=== PATIENT | female | born 1965 | race Caucasian/White ===

== ENCOUNTER → 2022-06-27 | Outpatient (CLI) | payer BC ==
[2022-06-27 11:13] LABS: BASO # 0.1 10*3/uL (0.0-0.1); BASO % 0.8 % (0.0-1.0); EOS # 0.1 10*3/uL (0.0-0.4); EOS % 1.4 % (1.0-4.0); HEMATOCRIT 42.1 % (37.0-47.0); LYMPH % 13.7 % (27.0-41.0); MEAN CELL VOLUME 86.4 fl (81.0-99.0); MEAN CORPUSCULAR HGB 27.7 pg (27.0-31.0); MEAN CORPUSCULAR HGB CONC 32.1 g/dl (33.0-37.0); MEAN PLATELET VOLUME 9.5 fl (9.6-12.3); MONO # 0.7 10*3/uL (0.1-1.0); NEUT # 5.4 10*3/uL (2.3-7.9); NEUT % 74.8 % (47.0-73.0); PLATELET COUNT AUTOMATED 382 10*3/uL (130-400); RED BLOOD COUNT 4.87 10*6/uL (4.10-5.10); RED CELL DISTRI WIDTH 12.1 % (0-14.5); WHITE BLOOD COUNT 7.2 10*3/uL (4.8-10.8)
== END | disposition home or self-care (01) ==
LOC: LAB 08:48 → WOUNDCARE 08:48
PROVIDERS: ATTEND Nurse Practitioner Family
DX: T81.89XA Other complications of procedures, not elsewhere classified, initial encounter (principal); S21.101A Unspecified open wound of right front wall of thorax without penetration into thoracic cavity, initial encounter; L59.9 Disorder of the skin and subcutaneous tissue related to radiation, unspecified; Z01.818 Encounter for other preprocedural examination; Z85.3 Personal history of malignant neoplasm of breast; Z92.3 Personal history of irradiation; Z71.89 Other specified counseling; Z90.710 Acquired absence of both cervix and uterus; Y84.2 Radiological procedure and radiotherapy as the cause of abnormal reaction of the patient, or of later complication, without mention of misadventure at the time of the procedure; X58.XXXA Exposure to other specified factors, initial encounter; Y93.89 Activity, other specified; Y92.89 Other specified places as the place of occurrence of the external cause; Y99.8 Other external cause status; Y92.238 Other place in hospital as the place of occurrence of the external cause; Y83.8 Other surgical procedures as the cause of abnormal reaction of the patient, or of later complication, without mention of misadventure at the time of the procedure

== ENCOUNTER → 2022-06-29 | Outpatient (CLI) | payer BC | END | disposition home or self-care (01) | LOC: RESCLI 14:04 | PROVIDERS: ATTEND Internal Medicine | DX: I10 Essential (primary) hypertension (principal); I26.92 Saddle embolus of pulmonary artery without acute cor pulmonale; D84.9 Immunodeficiency, unspecified; J32.9 Chronic sinusitis, unspecified; K21.9 Gastro-esophageal reflux disease without esophagitis; E78.5 Hyperlipidemia, unspecified; G47.00 Insomnia, unspecified; E55.9 Vitamin D deficiency, unspecified; Z00.00 Encounter for general adult medical examination without abnormal findings; Z82.49 Family history of ischemic heart disease and other diseases of the circulatory system; Z88.8 Allergy status to other drugs, medicaments and biological substances; Z79.899 Other long term (current) drug therapy ==

== ENCOUNTER → 2022-07-02 | Outpatient (CLI) | payer BC | END | disposition home or self-care (01) | LOC: WOUNDCARE | PROVIDERS: ATTEND Internal Medicine | DX: L59.8 Other specified disorders of the skin and subcutaneous tissue related to radiation (principal); S21.101D Unspecified open wound of right front wall of thorax without penetration into thoracic cavity, subsequent encounter; Z71.89 Other specified counseling; Z92.3 Personal history of irradiation; Z85.3 Personal history of malignant neoplasm of breast; Z01.818 Encounter for other preprocedural examination; Z90.710 Acquired absence of both cervix and uterus; X58.XXXD Exposure to other specified factors, subsequent encounter; Y84.2 Radiological procedure and radiotherapy as the cause of abnormal reaction of the patient, or of later complication, without mention of misadventure at the time of the procedure ==

== ENCOUNTER → 2022-07-03 | Outpatient (CLI) | payer BC | END | disposition home or self-care (01) | LOC: WOUNDCARE | PROVIDERS: ATTEND Student in an Organized Health Care Education/Training Program | DX: L59.8 Other specified disorders of the skin and subcutaneous tissue related to radiation (principal); S21.101D Unspecified open wound of right front wall of thorax without penetration into thoracic cavity, subsequent encounter; Z01.818 Encounter for other preprocedural examination; Z85.3 Personal history of malignant neoplasm of breast; Z92.3 Personal history of irradiation; Z71.89 Other specified counseling; Z90.710 Acquired absence of both cervix and uterus; X58.XXXD Exposure to other specified factors, subsequent encounter; Y84.2 Radiological procedure and radiotherapy as the cause of abnormal reaction of the patient, or of later complication, without mention of misadventure at the time of the procedure ==

== ENCOUNTER → 2022-07-04 | Outpatient (CLI) | payer BC | END | disposition home or self-care (01) | LOC: WOUNDCARE | PROVIDERS: ATTEND Nurse Practitioner Family | DX: L59.8 Other specified disorders of the skin and subcutaneous tissue related to radiation (principal); T81.89XD Other complications of procedures, not elsewhere classified, subsequent encounter; S21.101D Unspecified open wound of right front wall of thorax without penetration into thoracic cavity, subsequent encounter; L98.492 Non-pressure chronic ulcer of skin of other sites with fat layer exposed; Z01.818 Encounter for other preprocedural examination; Z85.3 Personal history of malignant neoplasm of breast; Z92.3 Personal history of irradiation; Z71.89 Other specified counseling; Z90.710 Acquired absence of both cervix and uterus; X58.XXXD Exposure to other specified factors, subsequent encounter; Y83.8 Other surgical procedures as the cause of abnormal reaction of the patient, or of later complication, without mention of misadventure at the time of the procedure; Y84.2 Radiological procedure and radiotherapy as the cause of abnormal reaction of the patient, or of later complication, without mention of misadventure at the time of the procedure ==

== ENCOUNTER → 2022-07-09 | Outpatient (CLI) | payer BC | END | disposition home or self-care (01) | LOC: WOUNDCARE 00:51 | PROVIDERS: ATTEND Student in an Organized Health Care Education/Training Program | DX: L59.8 Other specified disorders of the skin and subcutaneous tissue related to radiation (principal); S21.101D Unspecified open wound of right front wall of thorax without penetration into thoracic cavity, subsequent encounter; Z01.818 Encounter for other preprocedural examination; Z85.3 Personal history of malignant neoplasm of breast; Z92.3 Personal history of irradiation; Z71.89 Other specified counseling; Z90.710 Acquired absence of both cervix and uterus; X58.XXXD Exposure to other specified factors, subsequent encounter; Y84.2 Radiological procedure and radiotherapy as the cause of abnormal reaction of the patient, or of later complication, without mention of misadventure at the time of the procedure ==

== ENCOUNTER → 2022-07-11 | Outpatient (CLI) | payer BC | LOC: WOUNDCARE 01:29 | PROVIDERS: ATTEND Nurse Practitioner Family | DX: L59.8 Other specified disorders of the skin and subcutaneous tissue related to radiation (principal); S21.101D Unspecified open wound of right front wall of thorax without penetration into thoracic cavity, subsequent encounter; Z71.89 Other specified counseling; Z92.3 Personal history of irradiation; Z85.3 Personal history of malignant neoplasm of breast; Z01.818 Encounter for other preprocedural examination; Z90.710 Acquired absence of both cervix and uterus; X58.XXXD Exposure to other specified factors, subsequent encounter; Y84.2 Radiological procedure and radiotherapy as the cause of abnormal reaction of the patient, or of later complication, without mention of misadventure at the time of the procedure ==

== ENCOUNTER → 2022-07-13 | Outpatient (CLI) | payer BC | END | disposition home or self-care (01) | LOC: WOUNDCARE 01:35 | PROVIDERS: ATTEND Nurse Practitioner Family | DX: L59.8 Other specified disorders of the skin and subcutaneous tissue related to radiation (principal); S21.101D Unspecified open wound of right front wall of thorax without penetration into thoracic cavity, subsequent encounter; Z92.3 Personal history of irradiation; Z85.3 Personal history of malignant neoplasm of breast; Z01.818 Encounter for other preprocedural examination; Z71.89 Other specified counseling; Z90.710 Acquired absence of both cervix and uterus; X58.XXXD Exposure to other specified factors, subsequent encounter; Y84.2 Radiological procedure and radiotherapy as the cause of abnormal reaction of the patient, or of later complication, without mention of misadventure at the time of the procedure ==

== ENCOUNTER → 2022-07-17 | Outpatient (CLI) | payer BC | END | disposition home or self-care (01) | LOC: WOUNDCARE 03:33 | PROVIDERS: ATTEND Nurse Practitioner Family | DX: L59.8 Other specified disorders of the skin and subcutaneous tissue related to radiation (principal); T81.89XD Other complications of procedures, not elsewhere classified, subsequent encounter; S21.101D Unspecified open wound of right front wall of thorax without penetration into thoracic cavity, subsequent encounter; L98.492 Non-pressure chronic ulcer of skin of other sites with fat layer exposed; Z01.818 Encounter for other preprocedural examination; Z85.3 Personal history of malignant neoplasm of breast; Z92.3 Personal history of irradiation; Z71.89 Other specified counseling; X58.XXXD Exposure to other specified factors, subsequent encounter; Y83.8 Other surgical procedures as the cause of abnormal reaction of the patient, or of later complication, without mention of misadventure at the time of the procedure; Y84.2 Radiological procedure and radiotherapy as the cause of abnormal reaction of the patient, or of later complication, without mention of misadventure at the time of the procedure ==

== ENCOUNTER → 2022-07-18 | Outpatient (CLI) | payer BC | END | disposition home or self-care (01) | LOC: WOUNDCARE 01:10 | PROVIDERS: ATTEND Nurse Practitioner Family | DX: L59.8 Other specified disorders of the skin and subcutaneous tissue related to radiation (principal); S21.101D Unspecified open wound of right front wall of thorax without penetration into thoracic cavity, subsequent encounter; T81.89XD Other complications of procedures, not elsewhere classified, subsequent encounter; Z01.818 Encounter for other preprocedural examination; Z85.3 Personal history of malignant neoplasm of breast; Z92.3 Personal history of irradiation; Z71.89 Other specified counseling; Z90.710 Acquired absence of both cervix and uterus; X58.XXXD Exposure to other specified factors, subsequent encounter; Y83.8 Other surgical procedures as the cause of abnormal reaction of the patient, or of later complication, without mention of misadventure at the time of the procedure; Y84.2 Radiological procedure and radiotherapy as the cause of abnormal reaction of the patient, or of later complication, without mention of misadventure at the time of the procedure ==

== ENCOUNTER → 2022-07-23 | Outpatient (CLI) | payer BC | END | disposition home or self-care (01) | LOC: WOUNDCARE 02:07 | PROVIDERS: ATTEND Internal Medicine | DX: L59.8 Other specified disorders of the skin and subcutaneous tissue related to radiation (principal); S21.101D Unspecified open wound of right front wall of thorax without penetration into thoracic cavity, subsequent encounter; Z85.3 Personal history of malignant neoplasm of breast; Z01.818 Encounter for other preprocedural examination; Z92.3 Personal history of irradiation; Z71.89 Other specified counseling; Z90.710 Acquired absence of both cervix and uterus; X58.XXXD Exposure to other specified factors, subsequent encounter; Y84.2 Radiological procedure and radiotherapy as the cause of abnormal reaction of the patient, or of later complication, without mention of misadventure at the time of the procedure ==

== ENCOUNTER → 2022-07-24 | Outpatient (CLI) | payer BC | END | disposition home or self-care (01) | LOC: WOUNDCARE 02:54 | PROVIDERS: ATTEND Internal Medicine | DX: L59.8 Other specified disorders of the skin and subcutaneous tissue related to radiation (principal); T81.89XD Other complications of procedures, not elsewhere classified, subsequent encounter; L98.492 Non-pressure chronic ulcer of skin of other sites with fat layer exposed; S21.101D Unspecified open wound of right front wall of thorax without penetration into thoracic cavity, subsequent encounter; Z71.89 Other specified counseling; Z01.818 Encounter for other preprocedural examination; Z85.3 Personal history of malignant neoplasm of breast; Z92.3 Personal history of irradiation; Z90.710 Acquired absence of both cervix and uterus; X58.XXXD Exposure to other specified factors, subsequent encounter; Y83.8 Other surgical procedures as the cause of abnormal reaction of the patient, or of later complication, without mention of misadventure at the time of the procedure; Y84.2 Radiological procedure and radiotherapy as the cause of abnormal reaction of the patient, or of later complication, without mention of misadventure at the time of the procedure ==

== ENCOUNTER → 2022-07-26 | Outpatient (CLI) | payer BC | END | disposition home or self-care (01) | LOC: WOUNDCARE 04:54 | PROVIDERS: ATTEND Nurse Practitioner Family | DX: L59.8 Other specified disorders of the skin and subcutaneous tissue related to radiation (principal); S21.101D Unspecified open wound of right front wall of thorax without penetration into thoracic cavity, subsequent encounter; L98.492 Non-pressure chronic ulcer of skin of other sites with fat layer exposed; Z01.818 Encounter for other preprocedural examination; Z85.3 Personal history of malignant neoplasm of breast; Z92.3 Personal history of irradiation; Z71.89 Other specified counseling; Z90.710 Acquired absence of both cervix and uterus; X58.XXXD Exposure to other specified factors, subsequent encounter; Y84.2 Radiological procedure and radiotherapy as the cause of abnormal reaction of the patient, or of later complication, without mention of misadventure at the time of the procedure ==

== ENCOUNTER → 2022-07-27 | Outpatient (CLI) | payer BC | LOC: CANPRECLI → WOUNDCARE 09:49 | PROVIDERS: ATTEND Nurse Practitioner Family | DX: L59.8 Other specified disorders of the skin and subcutaneous tissue related to radiation (principal); L98.492 Non-pressure chronic ulcer of skin of other sites with fat layer exposed; S21.101D Unspecified open wound of right front wall of thorax without penetration into thoracic cavity, subsequent encounter; T70.0XXD Otitic barotrauma, subsequent encounter; Z01.818 Encounter for other preprocedural examination; Z85.3 Personal history of malignant neoplasm of breast; Z92.3 Personal history of irradiation; Z71.89 Other specified counseling; Z90.710 Acquired absence of both cervix and uterus; X58.XXXD Exposure to other specified factors, subsequent encounter; Y84.2 Radiological procedure and radiotherapy as the cause of abnormal reaction of the patient, or of later complication, without mention of misadventure at the time of the procedure ==

== ENCOUNTER → 2022-07-30 | Outpatient (CLI) | payer BC | END | disposition home or self-care (01) | LOC: WOUNDCARE 04:01 | PROVIDERS: ATTEND Nurse Practitioner Family | DX: L59.8 Other specified disorders of the skin and subcutaneous tissue related to radiation (principal); L98.492 Non-pressure chronic ulcer of skin of other sites with fat layer exposed; S21.101D Unspecified open wound of right front wall of thorax without penetration into thoracic cavity, subsequent encounter; T70.0XXD Otitic barotrauma, subsequent encounter; Z85.3 Personal history of malignant neoplasm of breast; Z92.3 Personal history of irradiation; Z01.818 Encounter for other preprocedural examination; Z90.710 Acquired absence of both cervix and uterus; Z71.89 Other specified counseling; X58.XXXD Exposure to other specified factors, subsequent encounter; Y84.2 Radiological procedure and radiotherapy as the cause of abnormal reaction of the patient, or of later complication, without mention of misadventure at the time of the procedure ==

== ENCOUNTER → 2022-07-31 | Outpatient (CLI) | payer BC | END | disposition home or self-care (01) | LOC: WOUNDCARE 03:07 | PROVIDERS: ATTEND Student in an Organized Health Care Education/Training Program | DX: L59.8 Other specified disorders of the skin and subcutaneous tissue related to radiation (principal); T81.89XD Other complications of procedures, not elsewhere classified, subsequent encounter; S21.101D Unspecified open wound of right front wall of thorax without penetration into thoracic cavity, subsequent encounter; L98.492 Non-pressure chronic ulcer of skin of other sites with fat layer exposed; Z01.818 Encounter for other preprocedural examination; Z85.3 Personal history of malignant neoplasm of breast; Z92.3 Personal history of irradiation; Z71.89 Other specified counseling; Z90.710 Acquired absence of both cervix and uterus; X58.XXXD Exposure to other specified factors, subsequent encounter; Y83.8 Other surgical procedures as the cause of abnormal reaction of the patient, or of later complication, without mention of misadventure at the time of the procedure; Y84.2 Radiological procedure and radiotherapy as the cause of abnormal reaction of the patient, or of later complication, without mention of misadventure at the time of the procedure ==

== ENCOUNTER → 2022-08-01 | Outpatient (CLI) | payer BC | END | disposition home or self-care (01) | LOC: WOUNDCARE 02:47 | PROVIDERS: ATTEND Nurse Practitioner Family | DX: L59.8 Other specified disorders of the skin and subcutaneous tissue related to radiation (principal); S21.101D Unspecified open wound of right front wall of thorax without penetration into thoracic cavity, subsequent encounter; T70.0XXD Otitic barotrauma, subsequent encounter; L98.492 Non-pressure chronic ulcer of skin of other sites with fat layer exposed; Z85.3 Personal history of malignant neoplasm of breast; Z01.818 Encounter for other preprocedural examination; Z92.3 Personal history of irradiation; Z71.89 Other specified counseling; Z90.710 Acquired absence of both cervix and uterus; X58.XXXD Exposure to other specified factors, subsequent encounter; Y84.2 Radiological procedure and radiotherapy as the cause of abnormal reaction of the patient, or of later complication, without mention of misadventure at the time of the procedure ==

== ENCOUNTER → 2022-08-02 | Outpatient (CLI) | payer BC | END | disposition home or self-care (01) | LOC: WOUNDCARE 01:24 | PROVIDERS: ATTEND Nurse Practitioner Family | DX: L59.8 Other specified disorders of the skin and subcutaneous tissue related to radiation (principal); T81.89XD Other complications of procedures, not elsewhere classified, subsequent encounter; S21.101D Unspecified open wound of right front wall of thorax without penetration into thoracic cavity, subsequent encounter; T70.0XXD Otitic barotrauma, subsequent encounter; L98.492 Non-pressure chronic ulcer of skin of other sites with fat layer exposed; Z01.818 Encounter for other preprocedural examination; Z85.3 Personal history of malignant neoplasm of breast; Z92.3 Personal history of irradiation; Z71.89 Other specified counseling; Z90.710 Acquired absence of both cervix and uterus; X58.XXXD Exposure to other specified factors, subsequent encounter; Y83.8 Other surgical procedures as the cause of abnormal reaction of the patient, or of later complication, without mention of misadventure at the time of the procedure ==

== ENCOUNTER → 2022-08-07 | Outpatient (CLI) | payer BC | END | disposition home or self-care (01) | LOC: WOUNDCARE 04:20 | PROVIDERS: ATTEND Student in an Organized Health Care Education/Training Program | DX: L59.8 Other specified disorders of the skin and subcutaneous tissue related to radiation (principal); L98.492 Non-pressure chronic ulcer of skin of other sites with fat layer exposed; T70.0XXD Otitic barotrauma, subsequent encounter; S21.101D Unspecified open wound of right front wall of thorax without penetration into thoracic cavity, subsequent encounter; Z85.3 Personal history of malignant neoplasm of breast; Z92.3 Personal history of irradiation; Z01.818 Encounter for other preprocedural examination; Z71.89 Other specified counseling; Z90.710 Acquired absence of both cervix and uterus; X58.XXXD Exposure to other specified factors, subsequent encounter; Y84.2 Radiological procedure and radiotherapy as the cause of abnormal reaction of the patient, or of later complication, without mention of misadventure at the time of the procedure ==

== ENCOUNTER → 2022-08-08 | Outpatient (CLI) | payer BC | END | disposition home or self-care (01) | LOC: WOUNDCARE 03:46 | PROVIDERS: ATTEND Nurse Practitioner Family | DX: L59.8 Other specified disorders of the skin and subcutaneous tissue related to radiation (principal); T81.89XD Other complications of procedures, not elsewhere classified, subsequent encounter; L98.492 Non-pressure chronic ulcer of skin of other sites with fat layer exposed; S21.101D Unspecified open wound of right front wall of thorax without penetration into thoracic cavity, subsequent encounter; T70.0XXD Otitic barotrauma, subsequent encounter; Z01.818 Encounter for other preprocedural examination; Z85.3 Personal history of malignant neoplasm of breast; Z92.3 Personal history of irradiation; Z71.89 Other specified counseling; Z90.710 Acquired absence of both cervix and uterus; Y83.8 Other surgical procedures as the cause of abnormal reaction of the patient, or of later complication, without mention of misadventure at the time of the procedure ==

== ENCOUNTER → 2022-08-09 | Outpatient (CLI) | payer BC | END | disposition home or self-care (01) | LOC: WOUNDCARE 00:35 | PROVIDERS: ATTEND Nurse Practitioner Family | DX: L59.8 Other specified disorders of the skin and subcutaneous tissue related to radiation (principal); S21.101D Unspecified open wound of right front wall of thorax without penetration into thoracic cavity, subsequent encounter; L98.492 Non-pressure chronic ulcer of skin of other sites with fat layer exposed; T70.0XXD Otitic barotrauma, subsequent encounter; Z01.818 Encounter for other preprocedural examination; Z85.3 Personal history of malignant neoplasm of breast; Z92.3 Personal history of irradiation; Z71.89 Other specified counseling; Z90.710 Acquired absence of both cervix and uterus; X58.XXXD Exposure to other specified factors, subsequent encounter; Y84.2 Radiological procedure and radiotherapy as the cause of abnormal reaction of the patient, or of later complication, without mention of misadventure at the time of the procedure ==

== ENCOUNTER → 2022-08-10 | Outpatient (CLI) | payer BC | LOC: WOUNDCARE 03:46 | PROVIDERS: ATTEND Student in an Organized Health Care Education/Training Program | DX: L59.8 Other specified disorders of the skin and subcutaneous tissue related to radiation (principal); T81.89XD Other complications of procedures, not elsewhere classified, subsequent encounter; L98.492 Non-pressure chronic ulcer of skin of other sites with fat layer exposed; S21.101D Unspecified open wound of right front wall of thorax without penetration into thoracic cavity, subsequent encounter; T70.0XXD Otitic barotrauma, subsequent encounter; Z01.818 Encounter for other preprocedural examination; Z85.3 Personal history of malignant neoplasm of breast; Z92.3 Personal history of irradiation; Z71.89 Other specified counseling; Z90.710 Acquired absence of both cervix and uterus; X58.XXXD Exposure to other specified factors, subsequent encounter; Y83.8 Other surgical procedures as the cause of abnormal reaction of the patient, or of later complication, without mention of misadventure at the time of the procedure; Y84.2 Radiological procedure and radiotherapy as the cause of abnormal reaction of the patient, or of later complication, without mention of misadventure at the time of the procedure ==

== ENCOUNTER → 2022-08-14 | Outpatient (CLI) | payer BC | END | disposition home or self-care (01) | LOC: WOUNDCARE 01:34 | PROVIDERS: ATTEND Nurse Practitioner Family | DX: L59.8 Other specified disorders of the skin and subcutaneous tissue related to radiation (principal); T81.89XD Other complications of procedures, not elsewhere classified, subsequent encounter; S21.101D Unspecified open wound of right front wall of thorax without penetration into thoracic cavity, subsequent encounter; T70.0XXD Otitic barotrauma, subsequent encounter; L98.492 Non-pressure chronic ulcer of skin of other sites with fat layer exposed; Z01.818 Encounter for other preprocedural examination; Z85.3 Personal history of malignant neoplasm of breast; Z92.3 Personal history of irradiation; Z90.710 Acquired absence of both cervix and uterus; X58.XXXD Exposure to other specified factors, subsequent encounter; Y83.8 Other surgical procedures as the cause of abnormal reaction of the patient, or of later complication, without mention of misadventure at the time of the procedure; Y84.2 Radiological procedure and radiotherapy as the cause of abnormal reaction of the patient, or of later complication, without mention of misadventure at the time of the procedure ==

== ENCOUNTER → 2022-08-15 | Outpatient (CLI) | payer BC | END | disposition home or self-care (01) | LOC: WOUNDCARE 04:42 | PROVIDERS: ATTEND Nurse Practitioner Family | DX: L59.8 Other specified disorders of the skin and subcutaneous tissue related to radiation (principal); L98.492 Non-pressure chronic ulcer of skin of other sites with fat layer exposed; S21.101D Unspecified open wound of right front wall of thorax without penetration into thoracic cavity, subsequent encounter; T70.0XXD Otitic barotrauma, subsequent encounter; Z01.818 Encounter for other preprocedural examination; Z85.3 Personal history of malignant neoplasm of breast; Z92.3 Personal history of irradiation; Z71.89 Other specified counseling; Z90.710 Acquired absence of both cervix and uterus; X58.XXXD Exposure to other specified factors, subsequent encounter; Y84.2 Radiological procedure and radiotherapy as the cause of abnormal reaction of the patient, or of later complication, without mention of misadventure at the time of the procedure ==

== ENCOUNTER → 2022-08-16 | Outpatient (CLI) | payer BC | END | disposition home or self-care (01) | LOC: WOUNDCARE 05:58 | PROVIDERS: ATTEND Nurse Practitioner Family | DX: L59.8 Other specified disorders of the skin and subcutaneous tissue related to radiation (principal); L98.492 Non-pressure chronic ulcer of skin of other sites with fat layer exposed; S21.101D Unspecified open wound of right front wall of thorax without penetration into thoracic cavity, subsequent encounter; T70.0XXD Otitic barotrauma, subsequent encounter; Z01.818 Encounter for other preprocedural examination; Z85.3 Personal history of malignant neoplasm of breast; Z92.3 Personal history of irradiation; Z71.89 Other specified counseling; Z90.710 Acquired absence of both cervix and uterus; X58.XXXD Exposure to other specified factors, subsequent encounter; Y84.2 Radiological procedure and radiotherapy as the cause of abnormal reaction of the patient, or of later complication, without mention of misadventure at the time of the procedure ==

== ENCOUNTER → 2022-08-17 | Outpatient (CLI) | payer BC | END | disposition home or self-care (01) | LOC: WOUNDCARE 02:24 | PROVIDERS: ATTEND Nurse Practitioner Family | DX: L59.8 Other specified disorders of the skin and subcutaneous tissue related to radiation (principal); M87.88 Other osteonecrosis, other site; L98.492 Non-pressure chronic ulcer of skin of other sites with fat layer exposed; S21.101D Unspecified open wound of right front wall of thorax without penetration into thoracic cavity, subsequent encounter; T70.0XXD Otitic barotrauma, subsequent encounter; Z01.818 Encounter for other preprocedural examination; Z85.3 Personal history of malignant neoplasm of breast; Z92.3 Personal history of irradiation; Z71.89 Other specified counseling; Z90.710 Acquired absence of both cervix and uterus; X58.XXXD Exposure to other specified factors, subsequent encounter; Y84.2 Radiological procedure and radiotherapy as the cause of abnormal reaction of the patient, or of later complication, without mention of misadventure at the time of the procedure ==

== ENCOUNTER → 2022-08-20 | Outpatient (CLI) | payer BC | END | disposition home or self-care (01) | LOC: WOUNDCARE 00:53 | PROVIDERS: ATTEND Internal Medicine | DX: L59.8 Other specified disorders of the skin and subcutaneous tissue related to radiation (principal); L98.492 Non-pressure chronic ulcer of skin of other sites with fat layer exposed; S21.101D Unspecified open wound of right front wall of thorax without penetration into thoracic cavity, subsequent encounter; T70.0XXD Otitic barotrauma, subsequent encounter; Z01.818 Encounter for other preprocedural examination; Z85.3 Personal history of malignant neoplasm of breast; Z92.3 Personal history of irradiation; Z71.89 Other specified counseling; Z90.710 Acquired absence of both cervix and uterus; X58.XXXD Exposure to other specified factors, subsequent encounter; Y84.2 Radiological procedure and radiotherapy as the cause of abnormal reaction of the patient, or of later complication, without mention of misadventure at the time of the procedure ==

== ENCOUNTER → 2022-08-21 | Outpatient (CLI) | payer BC | END | disposition home or self-care (01) | LOC: WOUNDCARE 03:06 | PROVIDERS: ATTEND Nurse Practitioner Family | DX: L59.8 Other specified disorders of the skin and subcutaneous tissue related to radiation (principal); T81.89XD Other complications of procedures, not elsewhere classified, subsequent encounter; S21.101D Unspecified open wound of right front wall of thorax without penetration into thoracic cavity, subsequent encounter; L98.492 Non-pressure chronic ulcer of skin of other sites with fat layer exposed; T70.0XXD Otitic barotrauma, subsequent encounter; Z01.818 Encounter for other preprocedural examination; Z85.3 Personal history of malignant neoplasm of breast; Z92.3 Personal history of irradiation; Z71.89 Other specified counseling; Z90.710 Acquired absence of both cervix and uterus; X58.XXXD Exposure to other specified factors, subsequent encounter; Y83.8 Other surgical procedures as the cause of abnormal reaction of the patient, or of later complication, without mention of misadventure at the time of the procedure; Y84.2 Radiological procedure and radiotherapy as the cause of abnormal reaction of the patient, or of later complication, without mention of misadventure at the time of the procedure ==

== ENCOUNTER → 2022-08-23 | Outpatient (CLI) | payer BC | LOC: WOUNDCARE 01:13 | PROVIDERS: ATTEND Nurse Practitioner Family | DX: L59.8 Other specified disorders of the skin and subcutaneous tissue related to radiation (principal); S21.101D Unspecified open wound of right front wall of thorax without penetration into thoracic cavity, subsequent encounter; L98.492 Non-pressure chronic ulcer of skin of other sites with fat layer exposed; T70.0XXD Otitic barotrauma, subsequent encounter; Z01.818 Encounter for other preprocedural examination; Z85.3 Personal history of malignant neoplasm of breast; Z92.3 Personal history of irradiation; Z71.89 Other specified counseling; Z90.710 Acquired absence of both cervix and uterus; X58.XXXD Exposure to other specified factors, subsequent encounter; Y84.2 Radiological procedure and radiotherapy as the cause of abnormal reaction of the patient, or of later complication, without mention of misadventure at the time of the procedure ==

== ENCOUNTER → 2022-08-24 | Outpatient (CLI) | payer BC | END | disposition home or self-care (01) | LOC: WOUNDCARE 04:17 | PROVIDERS: ATTEND Nurse Practitioner Family | DX: L59.8 Other specified disorders of the skin and subcutaneous tissue related to radiation (principal); L98.492 Non-pressure chronic ulcer of skin of other sites with fat layer exposed; S21.101D Unspecified open wound of right front wall of thorax without penetration into thoracic cavity, subsequent encounter; T70.0XXD Otitic barotrauma, subsequent encounter; Z01.818 Encounter for other preprocedural examination; Z85.3 Personal history of malignant neoplasm of breast; Z92.3 Personal history of irradiation; Z71.89 Other specified counseling; Z90.710 Acquired absence of both cervix and uterus; X58.XXXD Exposure to other specified factors, subsequent encounter; Y84.2 Radiological procedure and radiotherapy as the cause of abnormal reaction of the patient, or of later complication, without mention of misadventure at the time of the procedure ==

== ENCOUNTER → 2022-08-27 | Outpatient (CLI) | payer BC | END | disposition home or self-care (01) | LOC: WOUNDCARE 01:36 | PROVIDERS: ATTEND Student in an Organized Health Care Education/Training Program | DX: L59.8 Other specified disorders of the skin and subcutaneous tissue related to radiation (principal); S21.101D Unspecified open wound of right front wall of thorax without penetration into thoracic cavity, subsequent encounter; L98.492 Non-pressure chronic ulcer of skin of other sites with fat layer exposed; T70.0XXD Otitic barotrauma, subsequent encounter; Z01.818 Encounter for other preprocedural examination; Z85.3 Personal history of malignant neoplasm of breast; Z92.3 Personal history of irradiation; Z71.89 Other specified counseling; Z90.710 Acquired absence of both cervix and uterus; X58.XXXD Exposure to other specified factors, subsequent encounter; Y84.2 Radiological procedure and radiotherapy as the cause of abnormal reaction of the patient, or of later complication, without mention of misadventure at the time of the procedure ==

== ENCOUNTER → 2022-08-28 | Outpatient (CLI) | payer BC | END | disposition home or self-care (01) | LOC: WOUNDCARE 00:04 | PROVIDERS: ATTEND Nurse Practitioner Family | DX: L59.8 Other specified disorders of the skin and subcutaneous tissue related to radiation (principal); T81.89XD Other complications of procedures, not elsewhere classified, subsequent encounter; L98.492 Non-pressure chronic ulcer of skin of other sites with fat layer exposed; S21.101D Unspecified open wound of right front wall of thorax without penetration into thoracic cavity, subsequent encounter; T70.0XXD Otitic barotrauma, subsequent encounter; Z01.818 Encounter for other preprocedural examination; Z85.3 Personal history of malignant neoplasm of breast; Z92.3 Personal history of irradiation; Z71.89 Other specified counseling; Z90.710 Acquired absence of both cervix and uterus; X58.XXXD Exposure to other specified factors, subsequent encounter; Y83.8 Other surgical procedures as the cause of abnormal reaction of the patient, or of later complication, without mention of misadventure at the time of the procedure; Y84.2 Radiological procedure and radiotherapy as the cause of abnormal reaction of the patient, or of later complication, without mention of misadventure at the time of the procedure ==

== ENCOUNTER → 2022-08-29 | Outpatient (CLI) | payer BC | END | disposition home or self-care (01) | LOC: WOUNDCARE 00:45 | PROVIDERS: ATTEND Nurse Practitioner Family | DX: L59.8 Other specified disorders of the skin and subcutaneous tissue related to radiation (principal); L98.492 Non-pressure chronic ulcer of skin of other sites with fat layer exposed; S21.101D Unspecified open wound of right front wall of thorax without penetration into thoracic cavity, subsequent encounter; T70.0XXD Otitic barotrauma, subsequent encounter; Z01.818 Encounter for other preprocedural examination; Z85.3 Personal history of malignant neoplasm of breast; Z92.3 Personal history of irradiation; Z71.89 Other specified counseling; Z90.710 Acquired absence of both cervix and uterus; X58.XXXD Exposure to other specified factors, subsequent encounter; Y84.2 Radiological procedure and radiotherapy as the cause of abnormal reaction of the patient, or of later complication, without mention of misadventure at the time of the procedure ==

== ENCOUNTER → 2022-08-30 | Outpatient (CLI) | payer BC | END | disposition home or self-care (01) | LOC: WOUNDCARE 02:45 | PROVIDERS: ATTEND Internal Medicine | DX: L59.8 Other specified disorders of the skin and subcutaneous tissue related to radiation (principal); S21.101D Unspecified open wound of right front wall of thorax without penetration into thoracic cavity, subsequent encounter; L98.492 Non-pressure chronic ulcer of skin of other sites with fat layer exposed; T70.0XXD Otitic barotrauma, subsequent encounter; Z01.818 Encounter for other preprocedural examination; Z85.3 Personal history of malignant neoplasm of breast; Z92.3 Personal history of irradiation; Z71.89 Other specified counseling; Z90.710 Acquired absence of both cervix and uterus; X58.XXXD Exposure to other specified factors, subsequent encounter; Y84.2 Radiological procedure and radiotherapy as the cause of abnormal reaction of the patient, or of later complication, without mention of misadventure at the time of the procedure ==

== ENCOUNTER → 2022-08-31 | Outpatient (CLI) | payer BC | END | disposition home or self-care (01) | LOC: WOUNDCARE 02:42 | PROVIDERS: ATTEND Nurse Practitioner Family | DX: L59.8 Other specified disorders of the skin and subcutaneous tissue related to radiation (principal); S21.101D Unspecified open wound of right front wall of thorax without penetration into thoracic cavity, subsequent encounter; L98.492 Non-pressure chronic ulcer of skin of other sites with fat layer exposed; T70.0XXD Otitic barotrauma, subsequent encounter; Z01.818 Encounter for other preprocedural examination; Z85.3 Personal history of malignant neoplasm of breast; Z92.3 Personal history of irradiation; Z71.89 Other specified counseling; Z90.710 Acquired absence of both cervix and uterus; X58.XXXD Exposure to other specified factors, subsequent encounter; Y84.2 Radiological procedure and radiotherapy as the cause of abnormal reaction of the patient, or of later complication, without mention of misadventure at the time of the procedure ==

== ENCOUNTER → 2022-09-03 | Outpatient (CLI) | payer BC | END | disposition home or self-care (01) | LOC: WOUNDCARE 01:29 | PROVIDERS: ATTEND Student in an Organized Health Care Education/Training Program | DX: L59.8 Other specified disorders of the skin and subcutaneous tissue related to radiation (principal); S21.101D Unspecified open wound of right front wall of thorax without penetration into thoracic cavity, subsequent encounter; T70.0XXD Otitic barotrauma, subsequent encounter; L98.492 Non-pressure chronic ulcer of skin of other sites with fat layer exposed; Z01.818 Encounter for other preprocedural examination; Z85.3 Personal history of malignant neoplasm of breast; Z92.3 Personal history of irradiation; Z71.89 Other specified counseling; Z90.710 Acquired absence of both cervix and uterus; X58.XXXD Exposure to other specified factors, subsequent encounter; Y84.2 Radiological procedure and radiotherapy as the cause of abnormal reaction of the patient, or of later complication, without mention of misadventure at the time of the procedure ==

== ENCOUNTER → 2022-09-04 | Outpatient (CLI) | payer BC | END | disposition home or self-care (01) | LOC: WOUNDCARE 01:00 | PROVIDERS: ATTEND Internal Medicine | DX: L59.8 Other specified disorders of the skin and subcutaneous tissue related to radiation (principal); T81.89XD Other complications of procedures, not elsewhere classified, subsequent encounter; L98.492 Non-pressure chronic ulcer of skin of other sites with fat layer exposed; S21.101D Unspecified open wound of right front wall of thorax without penetration into thoracic cavity, subsequent encounter; T70.0XXD Otitic barotrauma, subsequent encounter; Z01.818 Encounter for other preprocedural examination; Z85.3 Personal history of malignant neoplasm of breast; Z92.3 Personal history of irradiation; Z71.89 Other specified counseling; Z90.710 Acquired absence of both cervix and uterus; X58.XXXD Exposure to other specified factors, subsequent encounter; Y83.8 Other surgical procedures as the cause of abnormal reaction of the patient, or of later complication, without mention of misadventure at the time of the procedure; Y84.2 Radiological procedure and radiotherapy as the cause of abnormal reaction of the patient, or of later complication, without mention of misadventure at the time of the procedure ==

== ENCOUNTER → 2022-09-06 | Outpatient (CLI) | payer BC | END | disposition home or self-care (01) | LOC: WOUNDCARE 01:13 | PROVIDERS: ATTEND Nurse Practitioner Family | DX: L59.8 Other specified disorders of the skin and subcutaneous tissue related to radiation (principal); L98.492 Non-pressure chronic ulcer of skin of other sites with fat layer exposed; S21.101D Unspecified open wound of right front wall of thorax without penetration into thoracic cavity, subsequent encounter; T70.0XXD Otitic barotrauma, subsequent encounter; Z01.818 Encounter for other preprocedural examination; Z85.3 Personal history of malignant neoplasm of breast; Z92.3 Personal history of irradiation; Z71.89 Other specified counseling; Z90.710 Acquired absence of both cervix and uterus; X58.XXXD Exposure to other specified factors, subsequent encounter; Y84.2 Radiological procedure and radiotherapy as the cause of abnormal reaction of the patient, or of later complication, without mention of misadventure at the time of the procedure ==

== ENCOUNTER → 2022-09-07 | Outpatient (CLI) | payer BC | END | disposition home or self-care (01) | LOC: WOUNDCARE 01:18 | PROVIDERS: ATTEND Nurse Practitioner Family | DX: L59.8 Other specified disorders of the skin and subcutaneous tissue related to radiation (principal); T81.89XD Other complications of procedures, not elsewhere classified, subsequent encounter; L98.492 Non-pressure chronic ulcer of skin of other sites with fat layer exposed; S21.101D Unspecified open wound of right front wall of thorax without penetration into thoracic cavity, subsequent encounter; T70.0XXD Otitic barotrauma, subsequent encounter; Z01.818 Encounter for other preprocedural examination; Z85.3 Personal history of malignant neoplasm of breast; Z92.3 Personal history of irradiation; Z71.89 Other specified counseling; Z90.710 Acquired absence of both cervix and uterus; X58.XXXD Exposure to other specified factors, subsequent encounter; Y83.8 Other surgical procedures as the cause of abnormal reaction of the patient, or of later complication, without mention of misadventure at the time of the procedure; Y84.2 Radiological procedure and radiotherapy as the cause of abnormal reaction of the patient, or of later complication, without mention of misadventure at the time of the procedure ==

== ENCOUNTER → 2022-09-10 | Outpatient (CLI) | payer BC | END | disposition home or self-care (01) | LOC: WOUNDCARE 00:29 | PROVIDERS: ATTEND Student in an Organized Health Care Education/Training Program | DX: L59.8 Other specified disorders of the skin and subcutaneous tissue related to radiation (principal); L98.492 Non-pressure chronic ulcer of skin of other sites with fat layer exposed; S21.101D Unspecified open wound of right front wall of thorax without penetration into thoracic cavity, subsequent encounter; T70.0XXD Otitic barotrauma, subsequent encounter; Z01.818 Encounter for other preprocedural examination; Z85.3 Personal history of malignant neoplasm of breast; Z92.3 Personal history of irradiation; Z71.89 Other specified counseling; Z90.710 Acquired absence of both cervix and uterus; X58.XXXD Exposure to other specified factors, subsequent encounter; Y84.2 Radiological procedure and radiotherapy as the cause of abnormal reaction of the patient, or of later complication, without mention of misadventure at the time of the procedure ==

== ENCOUNTER → 2022-09-12 | Outpatient (CLI) | payer BC | END | disposition home or self-care (01) | LOC: WOUNDCARE 02:38 | PROVIDERS: ATTEND Nurse Practitioner Family | DX: T81.89XD Other complications of procedures, not elsewhere classified, subsequent encounter (principal); L59.8 Other specified disorders of the skin and subcutaneous tissue related to radiation; L98.492 Non-pressure chronic ulcer of skin of other sites with fat layer exposed; S21.101D Unspecified open wound of right front wall of thorax without penetration into thoracic cavity, subsequent encounter; T70.0XXD Otitic barotrauma, subsequent encounter; Z85.3 Personal history of malignant neoplasm of breast; Z92.3 Personal history of irradiation; Z01.818 Encounter for other preprocedural examination; Z71.89 Other specified counseling; Z90.710 Acquired absence of both cervix and uterus; X58.XXXD Exposure to other specified factors, subsequent encounter; Y84.2 Radiological procedure and radiotherapy as the cause of abnormal reaction of the patient, or of later complication, without mention of misadventure at the time of the procedure; Y83.8 Other surgical procedures as the cause of abnormal reaction of the patient, or of later complication, without mention of misadventure at the time of the procedure ==

== ENCOUNTER → 2022-09-14 | Outpatient (CLI) | payer BC | END | disposition home or self-care (01) | LOC: WOUNDCARE 08:55 | PROVIDERS: ATTEND Nurse Practitioner Family | DX: T81.89XD Other complications of procedures, not elsewhere classified, subsequent encounter (principal); S21.101D Unspecified open wound of right front wall of thorax without penetration into thoracic cavity, subsequent encounter; L98.492 Non-pressure chronic ulcer of skin of other sites with fat layer exposed; L59.8 Other specified disorders of the skin and subcutaneous tissue related to radiation; Z01.818 Encounter for other preprocedural examination; Z85.3 Personal history of malignant neoplasm of breast; Z92.3 Personal history of irradiation; Z90.710 Acquired absence of both cervix and uterus; X58.XXXD Exposure to other specified factors, subsequent encounter; Y84.2 Radiological procedure and radiotherapy as the cause of abnormal reaction of the patient, or of later complication, without mention of misadventure at the time of the procedure; Y83.8 Other surgical procedures as the cause of abnormal reaction of the patient, or of later complication, without mention of misadventure at the time of the procedure ==

== ENCOUNTER → 2022-09-21 | Outpatient (CLI) | payer BC | END | disposition home or self-care (01) | LOC: WOUNDCARE 00:25 | PROVIDERS: ATTEND Nurse Practitioner Family | DX: L59.8 Other specified disorders of the skin and subcutaneous tissue related to radiation (principal); T81.89XD Other complications of procedures, not elsewhere classified, subsequent encounter; L98.492 Non-pressure chronic ulcer of skin of other sites with fat layer exposed; S21.101D Unspecified open wound of right front wall of thorax without penetration into thoracic cavity, subsequent encounter; Z01.818 Encounter for other preprocedural examination; Z85.3 Personal history of malignant neoplasm of breast; Z92.3 Personal history of irradiation; Z90.710 Acquired absence of both cervix and uterus; X58.XXXD Exposure to other specified factors, subsequent encounter; Y83.8 Other surgical procedures as the cause of abnormal reaction of the patient, or of later complication, without mention of misadventure at the time of the procedure; Y84.2 Radiological procedure and radiotherapy as the cause of abnormal reaction of the patient, or of later complication, without mention of misadventure at the time of the procedure ==

== ENCOUNTER → 2022-10-02 | Outpatient (CLI) | payer BC | LOC: WOUNDCARE 04:02 | PROVIDERS: ATTEND Nurse Practitioner Family | DX: T81.89XD Other complications of procedures, not elsewhere classified, subsequent encounter (principal); L59.8 Other specified disorders of the skin and subcutaneous tissue related to radiation; S21.101D Unspecified open wound of right front wall of thorax without penetration into thoracic cavity, subsequent encounter; L98.492 Non-pressure chronic ulcer of skin of other sites with fat layer exposed; Z92.3 Personal history of irradiation; Z85.3 Personal history of malignant neoplasm of breast; Z01.818 Encounter for other preprocedural examination; Z90.710 Acquired absence of both cervix and uterus; X58.XXXD Exposure to other specified factors, subsequent encounter; Y84.2 Radiological procedure and radiotherapy as the cause of abnormal reaction of the patient, or of later complication, without mention of misadventure at the time of the procedure; Y83.8 Other surgical procedures as the cause of abnormal reaction of the patient, or of later complication, without mention of misadventure at the time of the procedure ==

== ENCOUNTER → 2022-10-09 | Outpatient (CLI) | payer BC | END | disposition home or self-care (01) | LOC: WOUNDCARE 05:07 | PROVIDERS: ATTEND Nurse Practitioner Family | DX: T81.89XD Other complications of procedures, not elsewhere classified, subsequent encounter (principal); L59.8 Other specified disorders of the skin and subcutaneous tissue related to radiation; L98.492 Non-pressure chronic ulcer of skin of other sites with fat layer exposed; S21.101D Unspecified open wound of right front wall of thorax without penetration into thoracic cavity, subsequent encounter; Z92.3 Personal history of irradiation; Z85.3 Personal history of malignant neoplasm of breast; Z01.818 Encounter for other preprocedural examination; Z90.710 Acquired absence of both cervix and uterus; X58.XXXD Exposure to other specified factors, subsequent encounter; Y83.8 Other surgical procedures as the cause of abnormal reaction of the patient, or of later complication, without mention of misadventure at the time of the procedure; Y84.2 Radiological procedure and radiotherapy as the cause of abnormal reaction of the patient, or of later complication, without mention of misadventure at the time of the procedure ==

== ENCOUNTER → 2022-10-16 | Outpatient (CLI) | payer BC | END | disposition home or self-care (01) | LOC: WOUNDCARE 02:50 | PROVIDERS: ATTEND Nurse Practitioner Family | DX: T81.89XD Other complications of procedures, not elsewhere classified, subsequent encounter (principal); L98.492 Non-pressure chronic ulcer of skin of other sites with fat layer exposed; S21.101D Unspecified open wound of right front wall of thorax without penetration into thoracic cavity, subsequent encounter; L59.8 Other specified disorders of the skin and subcutaneous tissue related to radiation; Z01.818 Encounter for other preprocedural examination; Z85.3 Personal history of malignant neoplasm of breast; Z92.3 Personal history of irradiation; Z90.710 Acquired absence of both cervix and uterus; X58.XXXD Exposure to other specified factors, subsequent encounter; Y83.8 Other surgical procedures as the cause of abnormal reaction of the patient, or of later complication, without mention of misadventure at the time of the procedure; Y84.2 Radiological procedure and radiotherapy as the cause of abnormal reaction of the patient, or of later complication, without mention of misadventure at the time of the procedure ==

== ENCOUNTER → 2022-10-24 | Outpatient (CLI) | payer BC | END | disposition home or self-care (01) | LOC: WOUNDCARE 01:55 | PROVIDERS: ATTEND Nurse Practitioner Family | DX: T81.89XD Other complications of procedures, not elsewhere classified, subsequent encounter (principal); L59.8 Other specified disorders of the skin and subcutaneous tissue related to radiation; L98.492 Non-pressure chronic ulcer of skin of other sites with fat layer exposed; S21.101D Unspecified open wound of right front wall of thorax without penetration into thoracic cavity, subsequent encounter; Z85.3 Personal history of malignant neoplasm of breast; Z92.3 Personal history of irradiation; Z01.818 Encounter for other preprocedural examination; Z90.710 Acquired absence of both cervix and uterus; X58.XXXD Exposure to other specified factors, subsequent encounter; Y84.2 Radiological procedure and radiotherapy as the cause of abnormal reaction of the patient, or of later complication, without mention of misadventure at the time of the procedure; Y83.8 Other surgical procedures as the cause of abnormal reaction of the patient, or of later complication, without mention of misadventure at the time of the procedure ==